=== PATIENT | female | born 1970 | race Caucasian/White ===

== ENCOUNTER → 2016-04-26 | Outpatient (CLI) | payer BC ==
[2016-04-26 13:15] LABS: ALT 33 U/L (9-52); AST 24 U/L (14-36); Alkaline Phosphatase 69 U/L (38-126); Anion Gap 11 mmol/L; Blood Urea Nitrogen 17 mg/dL (7-17); Calcium 9.3 mg/dL (8.4-10.2); Carbon Dioxide 29 mmol/L (22-30); Chloride 101 mmol/L (98-107); Glucose 100 mg/dL (74-99); Non-African American GFR(MDRD) >60 (>60 ml/min/1.73 sqM); Potassium 4.4 mmol/L (3.5-5.1); Sodium 141 mmol/L (137-145); Total Bilirubin 0.7 mg/dL (0.2-1.3); Total Protein 7.6 g/dL (6.3-8.2)
== END | disposition home or self-care (01) ==
LOC: LABWHC1 12:16
PROVIDERS: ATTEND Internal Medicine Endocrinology, Diabetes & Metabolism
DX: E21.0 Primary hyperparathyroidism (principal)
CPT/HCPCS: 36415; 80053; 82306; 83970

== ENCOUNTER → 2016-08-05 | Outpatient (CLI) | payer BC ==
[2016-08-05 14:25] LABS: ALT 38 U/L (9-52); AST 33 U/L (14-36); Alkaline Phosphatase 67 U/L (38-126); Anion Gap 10 mmol/L; Blood Urea Nitrogen 14 mg/dL (7-17); Calcium 9.5 mg/dL (8.4-10.2); Carbon Dioxide 29 mmol/L (22-30); Chloride 103 mmol/L (98-107); Glucose 100 mg/dL (74-99); Non-African American GFR(MDRD) >60 (>60 ml/min/1.73 sqM); Potassium 4.9 mmol/L (3.5-5.1); Sodium 142 mmol/L (137-145); Total Bilirubin 0.7 mg/dL (0.2-1.3); Total Protein 7.7 g/dL (6.3-8.2)
== END | disposition home or self-care (01) ==
LOC: LABWHC1 13:27
PROVIDERS: ATTEND Internal Medicine Endocrinology, Diabetes & Metabolism
DX: E21.0 Primary hyperparathyroidism (principal)
CPT/HCPCS: 36415; 80053; 82306; 83970

== ENCOUNTER → 2016-08-20 | Outpatient (CLI) | payer BC ==
--- NOTE | 2016-08-24 14:14 | MM ---
Reason for exam: additional evaluation requested from prior study. Last mammogram was performed 1 year and 1 month ago. History: Family history of breast cancer in maternal grandmother. Benign cyst aspiration of the left breast, 2016. Physical Findings: Nurse did not find any significant physical abnormalities on exam. MG 3D Diag Mammo W/Cad SHAHRAM Bilateral CC and MLO view(s) were taken. Prior study comparison: February 16, 2016, left breast US breast LT. July 16, 2015, left breast US breast workup limited LT. July 11, 2015, bilateral MG 3d screening mammo w/cad. September 21, 2012, bilateral digital screening mammo w/CAD. The breast tissue is heterogeneously dense. This may lower the sensitivity of mammography. 9mm nodular asymmetry inferior left breast redemonstrated. Possible second small asymmetry centrally in the left breast appears more defined. These results were verbally communicated with the patient and result sheet given to the patient on 08/20/16. ASSESSMENT: Incomplete: need additional imaging evaluation, BI-RAD 0 RECOMMENDATION: Ultrasound of the left breast.
--- NOTE | 2016-08-24 14:17 | USB ---
Reason for exam: additional evaluation requested from abnormal screening. History: Family history of breast cancer in maternal grandmother. Benign cyst aspiration of the left breast, 2016. US Breast LT Left breast ultrasound includes all four quadrants, the retroareolar region and axilla. Finding demonstrates a 0.6 x 0.4 x 0.3cm oval, cystic lesion at 2 o' clock, benign and a 0.8 x 0.5 x 0.4cm mixed lesion at 8 o'clock versus 8 x 6 x 4mm previously on 02/16/16 and 8 x 7 x 3mm on 07/16/15. The patient reports interval biopsy in Dr. Sauceda's office and that there was no residual lesion. Recurrent lesion cannot be excluded. These results were verbally communicated with the patient and result sheet given to the patient on 08/20/16 ASSESSMENT: Suspicious, BI-RAD 4 RECOMMENDATION: Surgical consultation and ultrasound core biopsy of the left breast. (8:00) Called Dr. Huston with mammographic findings and has scheduled an appointment for the patient for 08/30/16 at 3:[address] Hines. PRELIMINARY REPORT CALLED AND FAXED TO DR. HINES ON 08/24/16 AT 300/TP. MTDD
== END | disposition home or self-care (01) ==
LOC: RADMAMWWP 13:50
PROVIDERS: ATTEND Obstetrics & Gynecology
DX: R92.2 Inconclusive mammogram (principal); R92.8 Other abnormal and inconclusive findings on diagnostic imaging of breast; Z80.3 Family history of malignant neoplasm of breast
CPT/HCPCS: 76641; G0204; G0279

== ENCOUNTER → 2016-09-03 | Day surgery (SDC) | payer BC ==
[~2016-09-03] MED LIST: ALPRAZolam 0.25 MG TAB ONE; BACITRACIN OINT 1 EACH PACKET TOPICAL ONE; LIDOCAINE 1% INJ 10MG/ML (20 ML MDV) ONE; LIDOCAINE 1%-EPI 1:100,000 20 ML VIAL ONE
--- NOTE | 2016-09-03 11:08 | USB ---
EXAMINATION TYPE: US biopsy breast VAD LT DATE OF EXAM: 09/03/2016 CLINICAL HISTORY: N63 Breast lump/mass. TECHNIQUE: Ultrasound guided core biopsy of left breast. COMPARISON: Previous ultrasound dated 08/20/2016. FINDINGS: The procedure of ultrasound guided core biopsy was explained to the patient. Benefits, alternatives, and risks were discussed. An informed consent was then obtained. The patient was placed in supine positioning for imaging and for the procedure. The overlying skin was prepped and draped in usual sterile fashion. 1 % Xylocaine with and without epinephrine was used as anesthetic into the skin and subcutaneous tissue up to area of concern in the left breast. Under ultrasound guidance, a 12-gauge vacuum assisted biopsy gun device was used to obtain 5 core samples. Following this, a biopsy clip was left in lesion. The patient tolerated the procedure well without any immediate complication. The patient was kept in the radiology department for short stay after the procedure and then discharged home in stable condition. Pathology is pending. IMPRESSION: SUCCESSFUL, UNCOMPLICATED ULTRASOUND GUIDED CORE BIOPSY OF AREA OF CONCERN IN THE LEFT BREAST, FULL PATHOLOGY RESULTS TO FOLLOW. Pathology Results: Benign BREAST, LEFT SITE A, 8:00, BIOPSY: FIBROCYSTIC CHANGES INCLUDING CYSTS AND FIBROSIS. Recommendation Follow up ultrasound of the left breast in 6 months. RADHA
--- NOTE | 2016-09-06 07:52 | MM ---
Reason for exam: additional evaluation requested from abnormal screening. Last mammogram was performed less than 1 month ago. History: Family history of breast cancer in maternal grandmother. Benign cyst aspiration of the left breast, 2016. MG Diagnostic Mammo LT Wo CAD CC and LM view(s) were taken of the left breast. Prior study comparison: August 20, 2016, bilateral MG 3d diag mammo w/cad SHAHRAM. July 11, 2015, bilateral MG 3d screening mammo w/cad. ASSESSMENT: Post procedure mammogram for marker placement RECOMMENDATION: Ultrasound of the left breast in 6 months. PENDING PATHOLOGY RESULTS.
== END ==
LOC: RADUSWWP 09:00
PROVIDERS: ATTEND Surgery
DX: N60.12 Diffuse cystic mastopathy of left breast (principal); R92.8 Other abnormal and inconclusive findings on diagnostic imaging of breast; Z80.3 Family history of malignant neoplasm of breast
CPT/HCPCS: 88305; 19083; G0206; A4648; J2001

== ENCOUNTER → 2017-02-04 | Outpatient (CLI) | payer BC ==
[2017-02-04 14:00] LABS: ALT 43 U/L (9-52); AST 36 U/L (14-36); Alkaline Phosphatase 64 U/L (38-126); Anion Gap 9 mmol/L; Blood Urea Nitrogen 16 mg/dL (7-17); Calcium 9.6 mg/dL (8.4-10.2); Carbon Dioxide 30 mmol/L (22-30); Chloride 104 mmol/L (98-107); Glucose 96 mg/dL (74-99); Non-African American GFR(MDRD) >60 (>60 ml/min/1.73 sqM); Potassium 4.1 mmol/L (3.5-5.1); Sodium 143 mmol/L (137-145); Total Bilirubin 0.5 mg/dL (0.2-1.3); Total Protein 7.8 g/dL (6.3-8.2)
--- NOTE | 2017-02-04 16:14 | US ---
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 GLAND SIZE: Right Lobe: 5.5 x 3.5 x 1.5 cm Overall Parenchyma: homogenous Left Lobe: 5.1 x 1.6 x 1.1 cm Overall Parenchyma: homogeneous Isthmus Thickness: 0.2 cm NODULES RIGHT: # of nodules measured on right: 1 1. 1.0 X 0.8 x 0.4 cm hypoechoic mixed nodule at the mid pole with well-defined margins. This nodu le is wider than tall and shows no intranodular vascularity. Prior size: 0.9 x 0.7 x 0.3 cm LEFT: # of nodules measured on left: 1 1. 1.0 X 0.8 x 0.5 cm isoechoic mixed nodule at the mid pole with well-defined margins. This nodul e is wider than tall and shows intranodular vascularity. Prior size: 1.0 x 0.8 x 0.4 cm ISTHMUS: # of nodules measured in the isthmus: 0 Bilateral neck scanned, no evidence of lymphadenopathy. IMPRESSION: 1. Bilateral thyroid nodules
== END | disposition home or self-care (01) ==
LOC: RADUSWWP 13:28
PROVIDERS: ATTEND Internal Medicine Endocrinology, Diabetes & Metabolism
DX: E04.2 Nontoxic multinodular goiter (principal); E21.0 Primary hyperparathyroidism
CPT/HCPCS: 36415; 76536; 80053; 82306; 83970; 84443

== ENCOUNTER → 2017-03-11 | Outpatient (CLI) | payer BC ==
--- NOTE | 2017-03-14 08:11 | USB ---
Reason for exam: follow-up at short interval from prior study. History: Family history of breast cancer in maternal grandmother. Benign US biopsy breast VAD LT of the left breast, September 03, 2016. Benign cyst aspiration of the left breast, 2015. Physical Findings: Nurse Summary: bilateral prominent nodularity at 12 o'clock, palpalpable and tender area left breast medial 9 o'clock (nurse ts). US Breast LT Left breast ultrasound includes all four quadrants, the retroareolar region and axilla. Finding demonstrates a 0.6 x 0.4 x 0.4cm oval, cystic lesion at 2 o'clock and a 0.7 x 0.4 x 0.7cm oval, mixed lesion at 8 o'clock prior biopsy site. These results were verbally communicated with the patient and result sheet given to the patient on 03/11/17. ASSESSMENT: Benign, BI-RAD 2 RECOMMENDATION: Routine screening mammogram of both breasts in 6 months. Back on schedule for July 2017.
== END | disposition home or self-care (01) ==
LOC: RADUSWWP 14:14
PROVIDERS: ATTEND Obstetrics & Gynecology
DX: R92.8 Other abnormal and inconclusive findings on diagnostic imaging of breast (principal)

== ENCOUNTER → 2018-05-05 | Outpatient (CLI) | payer BC ==
--- NOTE | 2018-05-09 07:46 | MM ---
Reason for exam: screening (asymptomatic). Last mammogram was performed 1 year and 8 months ago. History: Family history of breast cancer in maternal grandmother. Benign US biopsy breast VAD LT of the left breast, September 03, 2016. Benign cyst aspiration of the left breast, 2015. Physical Findings: A clinical breast exam by your physician is recommended on an annual basis and results should be correlated with mammographic findings. MG 3D Screening Mammo W/Cad Bilateral CC and MLO view(s) were taken. Prior study comparison: September 03, 2016, left breast MG diagnostic mammo LT wo CAD. August 20, 2016, bilateral MG 3d diag mammo w/cad SHAHRAM. July 11, 2015, bilateral MG 3d screening mammo w/cad. Previous mammotome biopsy in the left breast. No significant changes when compared with prior studies. ASSESSMENT: Benign, BI-RAD 2 RECOMMENDATION: Routine screening mammogram of both breasts in 1 year.
== END | disposition home or self-care (01) ==
LOC: RADMAMWWP 12:23
PROVIDERS: ATTEND Obstetrics & Gynecology
DX: Z12.31 Encounter for screening mammogram for malignant neoplasm of breast (principal)
CPT/HCPCS: 77063; 77067

== ENCOUNTER → 2018-10-03 | Outpatient (CLI) | payer BC ==
--- NOTE | 2018-10-03 14:32 | BD ---
EXAMINATION TYPE: Axial Bone Density DATE OF EXAM: 10/03/2018 COMPARISON: NONE CLINICAL HISTORY: 48 YR OLD FEMALE.....ICD-10 CODE: Z13.820 BONE DENSITY SCREENING Height: 66 Weight: 184 FRAX RISK QUESTIONS: Family History (Parent hip fracture): YES Secondary Osteoporosis: YES 2. Hyperthyroidism: YES RISK FACTORS HISTORY OF: Family History of Osteoporosis: YES, GRANDMOTHER WITH HIP FX ON PATERNAL SIDE Active: YES Diet low in dairy products/other sources of calcium: YES Postmenopausal woman: YES NATURAL AT AGE 47 Hyperparathyroidism: YES MEDICATIONS: Additional Medications: BP MEDS, VIT D, HEART MEDS, Additional History: BICUSPID AORTIC VALVE, HYPERCALCEMIA, HYPERTENSION EXAM MEASUREMENTS: Bone mineral densitometry was performed using the [employer] [facility]. Bone mineral density as measured about the Lumbar spine is: ----- L1-L4(G/cm2): 0.859 T Score Values are as follows: ----- L1: -1.7 ----- L2: -2.5 ----- L3: -2.7 ----- L4: -3.6 ----- L1-L4: -2.7 Bone mineral density FIRST DEXA SCAN....BASELINE STUDY Bone mineral density about the R hip (g/cm2): 0.851 Bone mineral density about the L hip (g/cm2): 0.884 T Score values are as follows: -----R Neck: -1.7 -----L Neck: -1.6 -----R Total: -1.2 -----L Total: -1.0 Bone mineral density FIRST DEXA STUDY FRAX%s: THERE IS A 4.6% CHANCE FOR A MAJOR OSTEOPOROTIC FX AND A 0.5% FOR HIP.....PROBABILITY FOR FX IN 10 YRS TIME IMPRESSION: Osteoporosis (T Score less than -2.5) with regards to the lumbar spine. There is increased fracture risk and therapy is usually indicated based on age. Re-Screen 1-2 years. NOTE: T-SCORE=SD OF THE YOUNG ADULT MEAN.
== END ==
LOC: RADBDWWP 12:54
PROVIDERS: ATTEND Obstetrics & Gynecology
DX: M81.0 Age-related osteoporosis without current pathological fracture (principal); N95.1 Menopausal and female climacteric states; E21.3 Hyperparathyroidism, unspecified
CPT/HCPCS: 77080

== ENCOUNTER → 2019-12-21 | Outpatient (CLI) | payer BC ==
--- NOTE | 2019-12-21 12:49 | US ---
EXAMINATION TYPE: US thyroid st tissue head/neck DATE OF EXAM: 12/21/2019 COMPARISON: NONE CLINICAL HISTORY: E21.3 Hyperparathyroidism. GLAND SIZE: Right Lobe: 5.9 x 1.2 x 1.8 cm Overall Parenchyma: homogenous Left Lobe: 5.2 x 1.0 x 1.6 cm Overall Parenchyma: homogeneous Isthmus Thickness: 0.2 cm NODULES RIGHT: # of nodules measured on right: 1 1. 1.0 X 0.4 x 0.9 cm anechoic cystic nodule at the upper pole with well-defined margins. This nod ule is wider than tall and shows no intranodular vascularity. Prior size: 0.9 X 0.8 x 0.4cm LEFT: # of nodules measured on right: 1 1. 1.2 X 0.5 x 1.2 cm isoechoic solid nodule at the mid pole with well-defined margins. This nodul e is wider than tall and shows intranodular vascularity. Prior size:1.0 X 0.8 x 0.4cm ISTHMUS: # of nodules measured in the isthmus: 0 Bilateral neck scanned, no evidence of lymphadenopathy. IMPRESSION: Bilateral thyroid nodules. Left lobe thyroid nodules slightly enlarged over the interval.
== END | disposition home or self-care (01) ==
LOC: RADUSWWP 12:04
PROVIDERS: ATTEND Family Medicine
DX: E04.1 Nontoxic single thyroid nodule (principal); E21.3 Hyperparathyroidism, unspecified
CPT/HCPCS: 76536

== ENCOUNTER 2020-01-18 09:30 | Day surgery (SDC) | payer BC ==
[2020-01-16 15:40] VITALS: BMI 46.0
[~2020-01-18 09:30] MED LIST changes: -ALPRAZolam 0.25 MG TAB ONE; -BACITRACIN OINT 1 EACH PACKET TOPICAL ONE; +LACTATED RINGERS 1,000 ML IV SCH; +LIDOCAINE 1% (10MG/ML) FOR IV START INTRADERMA PRN; -LIDOCAINE 1% INJ 10MG/ML (20 ML MDV) ONE; -LIDOCAINE 1%-EPI 1:100,000 20 ML VIAL ONE
[2020-01-18 10:06] VITALS: RESP 16; TEMP 98.2
[2020-01-18] MEDS ORDERED: LIDOCAINE 1% INJ 10MG/ML (20 ML MDV) ONE (11:16)
[2020-01-18] MEDS ORDERED: PROPOFOL 10 MG/ML 20 ML VIAL IV ONE (11:16)
--- NOTE | 2020-01-18 11:45 | P.PCN ---
Date of Procedure: 01/18/20 Procedure(s) Performed: BRIEF HISTORY: Patient is a 49-year-old pleasant female scheduled for an elective colonoscopy as a part of screening for colorectal neoplasia. Her father and grandfather both were diagnosed with colon cancer in his 60s. PROCEDURE PERFORMED: Colonoscopy with biopsy. PREOPERATIVE DIAGNOSIS: Screening for colon cancer/family history of colon cancer. IV sedation per Anesthesia. PROCEDURE: After informed consent was obtained, the patient, was brought into the endoscopy unit. IV sedation was administered by Anesthesia under continuous monitoring. Digital rectal examination was normal. Initially the Olympus CF-160 flexible video colonoscope was then inserted in the rectum, gradually advanced into the cecum without any difficulty. Careful examination was performed as the scope was gradually being withdrawn. Ileocecal valve and the appendiceal orifice were visualized and appeared normal. Prep was excellent. Mucosa of the cecum appeared normal. in the ascending colon there was a 3-4 mm polyp that was removed by cold biopsy. Rest of the, ascending colon, transverse colon, descending colon, sigmoid colon, and rectum appeared normal. Retroflexion was performed in the rectum and no lesions were seen. Scattered sigmoidal diverticulosis. The patient tolerated the procedure well. IMPRESSION: 3-4 cm sessile ascending colon polyp status post removal by cold biopsy Scattered sigmoid diverticulosis. RECOMMENDATIONS: Findings of this examination were discussed with the patient as well as her family. She was advised to follow with the biopsy results and have a repeat colonoscopy in 5 years..
[2020-01-18 12:01] VITALS: BP 121/79; PULSE 78
== END 2020-01-18 12:24 | disposition home or self-care (01) ==
LOC: ORWHC2ENDO 09:30
PROVIDERS: ATTEND Internal Medicine Gastroenterology
DX: Z12.11 Encounter for screening for malignant neoplasm of colon (principal); D12.2 Benign neoplasm of ascending colon; K57.30 Diverticulosis of large intestine without perforation or abscess without bleeding; I10 Essential (primary) hypertension; Q23.1 Congenital insufficiency of aortic valve; Z80.0 Family history of malignant neoplasm of digestive organs; Z79.82 Long term (current) use of aspirin; Z79.899 Other long term (current) drug therapy; Z79.83 Long term (current) use of bisphosphonates
CPT/HCPCS: 88305; 45380; J2001; J2704

== ENCOUNTER → 2020-02-13 | Outpatient (CLI) | payer BC ==
--- NOTE | 2020-02-14 09:30 | MM ---
Reason for exam: screening (asymptomatic). Last mammogram was performed 1 year and 9 months ago. History: Family history of breast cancer in maternal grandmother. Benign US biopsy breast VAD LT of the left breast, September 03, 2016. Benign cyst aspiration of the left breast, 2016. Physical Findings: A clinical breast exam by your physician is recommended on an annual basis and results should be correlated with mammographic findings. MG 3D Screening Mammo W/Cad Bilateral CC and MLO view(s) were taken. Prior study comparison: May 05, 2018, bilateral MG 3d screening mammo w/cad. September 03, 2016, left breast MG diagnostic mammo LT wo CAD. The breast tissue is heterogeneously dense. This may lower the sensitivity of mammography. No significant changes when compared with prior studies. ASSESSMENT: Benign, BI-RAD 2 RECOMMENDATION: Routine screening mammogram of both breasts in 1 year.
== END | disposition home or self-care (01) ==
LOC: RADMAMWWP 14:48
PROVIDERS: ATTEND Family Medicine
DX: Z12.31 Encounter for screening mammogram for malignant neoplasm of breast (principal)
CPT/HCPCS: 77063; 77067

== ENCOUNTER 2020-02-18 12:42 | Day surgery (SDC) | payer BC ==
[2020-02-18 13:05] VITALS: BP 137/76; PULSE 98; RESP 16; TEMP 98.9
--- NOTE | 2020-02-18 18:04 | US ---
EXAMINATION TYPE: US FNA first lesion DATE OF EXAM: 02/18/2020 COMPARISON: Thyroid ultrasound 12/21/2027, 02/04/2017 HISTORY: Thyroid nodule, E04.1 RHINESTONE SETTER: Dr. Bess Robbins PROCEDURE: Preprocedure preliminary ultrasound imaging demonstrates a 1.4 x 0.7 x 1.0 cm mixed solid cystic, hyp oechoic, wider than tall, smoothly marginated left thyroid nodule with no echogenic foci. The procedure was discussed with the patient. The risks, complications, benefits, and alternatives we re discussed and any questions were answered. Informed consent was obtained. The patient was placed s upine on the ultrasound table and prepped and draped in the usual sterile fashion. Maximal barrier technique was utilized. Ultrasound using sterile technique. The skin overlying the no dule was localized with ultrasound and the overlying skin prepped and draped. Lidocaine used for loca l anesthesia. 5 passes with a 25-gauge needle were made into the nodule under ultrasound guidance. As pirate specimen submitted to cytology. Postprocedure imaging demonstrates no significant hemorrhage. Following the procedure hemostasis achieved. No immediate complication. IMPRESSION: Status post ultrasound-guided fine-needle aspiration of left thyroid nodule, pathology pe nding.
== END 2020-02-27 10:14 | disposition home or self-care (01) ==
LOC: RADPROMAIN 12:42
PROVIDERS: ATTEND Family Medicine
DX: E04.1 Nontoxic single thyroid nodule (principal)
CPT/HCPCS: 10005; 88173; 88305

== ENCOUNTER → 2021-06-19 | Outpatient (CLI) | payer BC ==
--- NOTE | 2021-06-23 09:53 | MM ---
Reason for exam: screening (asymptomatic). Last mammogram was performed 1 year and 4 months ago. History: Patient is postmenopausal. Family history of breast cancer in maternal grandmother. Benign US biopsy breast VAD LT of the left breast, September 03, 2016. Benign cyst aspiration of the left breast, 2016. Physical Findings: A clinical breast exam by your physician is recommended on an annual basis and results should be correlated with mammographic findings. MG 3D Screening Mammo W/Cad Bilateral CC and MLO view(s) were taken. Prior study comparison: February 13, 2020, bilateral MG 3d screening mammo w/cad. May 05, 2018, bilateral MG 3d screening mammo w/cad. August 20, 2016, bilateral MG 3d diag mammo w/cad HSAHRAM. There is chronic nodularity in the left breast with microclip from prior biopsy. No significant changes when compared with prior studies. ASSESSMENT: Benign, BI-RAD 2 RECOMMENDATION: Routine screening mammogram of both breasts in 1 year. Patient should continue monthly self breast exams. A negative report should not preclude additional follow up of suspicious palpable abnormalities.
== END | disposition home or self-care (01) ==
LOC: RADMAMWWP 13:11
PROVIDERS: ATTEND Obstetrics & Gynecology
DX: Z12.31 Encounter for screening mammogram for malignant neoplasm of breast (principal); Z78.0 Asymptomatic menopausal state; Z80.3 Family history of malignant neoplasm of breast
CPT/HCPCS: 77063; 77067

== ENCOUNTER → 2022-04-02 | Outpatient (CLI) | payer BC ==
--- NOTE | 2022-04-02 14:44 | CT ---
EXAMINATION TYPE: CT angio chest DATE OF EXAM: 04/02/2022 COMPARISON: None HISTORY: Congenital defect of aortic valve. CT DLP: 737.1 mGycm, Automated exposure control for dose reduction was used. CONTRAST: Performed injected with 100ml mL of Isovue 370. TECHNIQUE: Axial images were obtained at 5 mm thick sections. Reconstructed images are reviewed on [employer] computer in the coronal plane. FINDINGS: Portion of the thyroid visualized is normal. No suspicious lung nodules or focal infiltrates are present. Appears to be some bilateral apical scar ring present. No enlarged mediastinal or hilar adenopathy is evident. The ascending aorta diameter at the level o f the main pulmonary artery is 4.0 cm. The main pulmonary artery diameter at the bifurcation is 2.4 cm. Coronary artery calcification is present. Following contrast administration no suspicious enhancement or vascular anomaly is identified. Limited CT sections are obtained through the upper abdomen. There is mild fatty infiltration of the l iver IMPRESSIONS: 1. Ascending thoracic aortic aneurysm 4.0 cm
== END | disposition home or self-care (01) ==
LOC: RADCTMAIN 13:03
PROVIDERS: ATTEND Internal Medicine Interventional Cardiology
DX: I71.20 Thoracic aortic aneurysm, without rupture, unspecified (principal); Q23.1 Congenital insufficiency of aortic valve
CPT/HCPCS: 71275; Q9967

== ENCOUNTER → 2022-09-27 | Outpatient (CLI) | payer BC ==
--- NOTE | 2022-09-29 08:00 | MM ---
Reason for Exam: Screening (asymptomatic). Last mammogram was performed 1 year(s) and 4 month(s) ago. Patient History: Menarche at age 11. First Full-Term at age 27. Postmenopausal. 2016, Benign Cyst Aspiration on the left side. 09/03/2016, Benign Core Biopsy on the left side. Maternal grandmother had breast cancer. Risk Values: Diana 5 year model risk: 1.4%. NCI Lifetime model risk: 11.0%. Prior Study Comparison: 05/05/2018 Bilateral Screening Mammogram, [facility]. 02/13/2020 Bilateral Screening Mammogram, [facility]. 06/19/2021 Bilateral Screening Mammogram, [facility]. Tissue Density: The breast tissue is heterogeneously dense. This may lower the sensitivity of mammography. Findings: Analyzed By CAD. There is no suspicious group of microcalcifications or new suspicious mass in either breast. Overall Assessment: Benign, BI-RAD 2 Management: Screening Mammogram of both breasts in 1 year. . Patient should continue monthly self-breast exams. A clinical breast exam by your physician is recommended on an annual basis. This exam should not preclude additional follow-up of suspicious palpable abnormalities. Note on Diana scores and lifetime risk: 1. A Diana score greater than 3% is considered moderate risk. If this is the case, consider specialist referral to assess eligibility for a risk reducing agent. 2. If overall lifetime risk for the development of breast cancer is 20% or higher, the patient may qualify for future screening with alternating mammogram and breast MRI. Electronically signed and approved by: Mihir Saul M.D. Radiologis
== END | disposition home or self-care (01) ==
LOC: RADMAMWWP 14:40
PROVIDERS: ATTEND Family Medicine
DX: Z12.31 Encounter for screening mammogram for malignant neoplasm of breast (principal); Z78.0 Asymptomatic menopausal state; Z80.3 Family history of malignant neoplasm of breast
CPT/HCPCS: 77063; 77067

== ENCOUNTER 2022-12-21 08:01 | Observation (INO) | payer BC ==
[~2022-12-21 08:01] MED LIST changes: +ACETAMINOPHEN TAB 500 MG TAB PO PRN; +GABAPENTIN 300 MG CAP PO PRN; -LACTATED RINGERS 1,000 ML IV SCH; -LIDOCAINE 1% (10MG/ML) FOR IV START INTRADERMA PRN; +MELOXICAM 7.5 MG TAB PO PRN; +TRANEXAMIC 1,000 MG/100ML-NACL 1,000 MG in SALINE 1 100ML.BAG IVPB PRN
[2022-12-21] MEDS ORDERED: NALOXONE 0.4 MG/ML 1 ML VIAL IV PRN (08:04)
[2022-12-21] MEDS ORDERED: NA PHOS,M-B/NA PHOS,DI-BA 133 ML ENEMA RECTAL PRN (08:04)
[2022-12-21] MEDS ORDERED: MAGNESIUM HYDROXIDE 2,400 MG/30 ML CUP PO PRN (08:04)
[2022-12-21] MEDS ORDERED: bisacodyL 10 MG SUPP RECTAL PRN (08:04)
[2022-12-21] MEDS ORDERED: HYDROmorphone 1 MG/ML 1 ML SYRINGE IVP PRN (08:04)
[2022-12-21] MEDS ORDERED: HYDROmorphone 0.5 MG/0.5 ML SYRINGE IVP PRN (08:04)
[2022-12-21] MEDS ORDERED: LACTATED RINGERS 1,000 ML IV ONE ×2 (08:51→11:27)
[2022-12-21] MEDS ORDERED: DEXAMETHASONE SOD PHOSPHATE 4 MG/ML 1 ML VIAL IVP ONE (08:53)
[2022-12-21] MEDS: ONDANSETRON 4 MG/2 ML VIAL IVP PRN (08:53)
[2022-12-21] MEDS ORDERED: MIDAZOLAM 2 MG/2 ML VIAL IVP ONE (09:06)
[2022-12-21] MEDS ORDERED: fentaNYL (PF) 50 MCG/ML 2 ML AMP IVP ONE (09:12)
[2022-12-21] MEDS ORDERED: ROPIVACAINE 5 MG/ML 30 ML VIAL ONE (10:16)
[2022-12-21] MEDS ORDERED: MIDAZOLAM 2 MG/2 ML VIAL ONE (10:16)
[2022-12-21] MEDS ORDERED: PHENYLEPHRINE-0.9% NACL SYG 1,000 MCG/10 ML SYRINGE ONE (10:16)
[2022-12-21] MEDS ORDERED: SODIUM CHLORIDE 0.9% (PF) 10 ML VIAL ONE (10:16)
[2022-12-21] MEDS ORDERED: TRANEXAMIC 1,000 MG/100ML-NACL PREMIX BAG ONE (10:16)
[2022-12-21] MEDS ORDERED: PROPOFOL 10 MG/ML 20 ML VIAL IV ONE (10:16)
[2022-12-21] MEDS ORDERED: fentaNYL (PF) 50 MCG/ML 2 ML AMP ONE (10:16)
[2022-12-21] MEDS ORDERED: ceFAZolin 1,000 MG in SODIUM CHLORIDE 0.9% 1,000 ML IRRIGATION ONE (10:50)
--- NOTE | 2022-12-21 11:22 | P.ANPRN ---
Procedure Note - Anesthesia - Nerve Block Performed Right Adductor Canal Infusion Time Out Performed: Yes ([id number]) Date of Procedure: 12/21/22 Location of Patient: PreOp Indication: Acute Post-Operative Pain, Dx/Pain Location (Right knee), Requested by Surgeon Specifically requested for management of pain by : Andrei Mills Sedation Type: Sedate with meaningful contact maintained Preparation: Sterile Prep, Sterile Dressing Position: Supine Catheter: Indwelling Needle Types: Pajunk Needle Gauge: 18 Ultrasound used to visualize needle placement: Yes Ultrasound used to observe medication spread: Yes Injectate: 0.5% Ropivacaine (see comment for volume) (20 mL +10 mL of normal saline) Blood Aspirated: No Pain Paresthesia on Injection Noted: No Resistance on Injection: Normal Image Stored and Saved: Yes Events: Uneventful and Well Tolerated Right iPack Single Time Out Performed: Yes Date of Procedure: 12/21/22 Location of Patient: PreOp Indication: Acute Post-Operative Pain, Dx/Pain Location (Right knee), Requested by Surgeon Specifically requested for management of pain by DrConcha: Andrei Mills Sedation Type: Sedate with meaningful contact maintained Preparation: Sterile Prep Position: Left Lateral Catheter: None Needle Types: Pajunk Needle Gauge: 21 Ultrasound used to visualize needle placement: Yes Ultrasound used to observe medication spread: Yes Injectate: 0.5% Ropivacaine (see comment for volume) (20 mL +10 mL of normal) Blood Aspirated: No Pain Paresthesia on Injection Noted: No Resistance on Injection: Normal Image Stored and Saved: Yes Events: Uneventful and Well Tolerated
--- NOTE | 2022-12-21 11:32 | P.OP ---
Date of Procedure: 12/21/22 Preoperative Diagnosis: Severe osteoarthritis right knee Postoperative Diagnosis: Severe osteoarthritis right knee Procedure(s) Performed: Right total knee arthroplasty Implants: Zepeda [employer] Nephew Journey II CR Oxinium cruciate retaining femoral component size 5, right [employer]epeda [employer]hew Journey nonporous tibial baseplate size 3, right [employer]epeda [employer]hew Journey II, XLPE Deep Dished articular insert, size 15 mm, Size 3-4, right [employer]ep[employer]hew Journey Aurora II resurfacing patellar component, oval, 29 mm All components were cemented using Palacos R bone cement The articulation is Oxinium on polyethylene Anesthesia: spinal Surgeon: Andrei Mills Senior Design Engineer #1: Karin Goetz Estimated Blood Loss (ml): 40 Pathology: none sent Condition: stable Disposition: PACU Indications for Procedure: The patient's knee is end-stage, and conservative management has failed. The operation of knee replacement has been discussed at length in the office, as well as potential risks and complications. These are inclusive of, but not limited to: Infection, bleeding, scarring, discomfort, stiffness, blood vessel and nerve damage, need for further surgery, failure to relieve symptoms, persistence, recurrence, or worsening of problems, loosening, dislocation, wear, blood clot, pulmonary embolism, , gait dysfunction, stiffness, and other risks as discussed in the office. Patient elects to proceed and the consent form has been signed. Operative Findings: The operative findings are consistent with severe osteoarthritis of the right knee Description of Procedure: The patient was seen in the preoperative area, the consent was reviewed and the operative site was marked with a skin marker. The patient verified the procedure and the operative site. An adductor canal pain catheter and an iPACK block were placed by anesthesia in the preoperative area. The patient was then brought to the operating room and positioned on the operating room table in the supine position. Preoperative antibiotics and a gram of tranexamic acid were given intravenously. A spinal anesthetic was administered by the anesthesia department. Care was taken to make sure that all pressure points were adequately padded. A tourniquet was placed on the upper thigh and the lower extremity was prepped with ChloraPrep and draped in usual sterile fashion. A universal time-out was then performed which confirmed the patient's name, surgical site, ALLERGIES, and consent. The lower extremity was then exsanguinated and tourniquet was inflated to 250 mmHg. A standard anterior midline approach to the knee was performed. The skin and subcutaneous tissue were sharply dissected down to the patellar tendon. A medial parapatellar arthrotomy was then performed. The knee was then extended, the patellar was everted, and the knee was flexed. The infra-patellar fat pad was removed in order to enhance exposure. The anterior horns of both menisci were excised, and a release was performed to the posterior medial aspect of the knee. On gross visual inspection, there was complete loss of articular cartilage in the medial and patellofemoral joint spaces. There was also significant cartilage damage in the lateral compartment. There were multiple periarticular osteophytes globally about the knee which were then removed with a Ronguer. The femoral canal was then opened with the 9.5 mm intramedullary drill. The 8 mm intramedullary alva was then inserted into the femoral canal with the distal femoral cutting guide set for 5 of valgus. The distal femoral cutting block was then pinned in place. The intramedullary alva was then removed, and the distal femur was then cut. The cutting block was then removed and the cut was checked for symmetry. The resected bone was then measured to confirm the appropriate distal femoral resection. Next, the sizing guide was then placed and set for 3 external rotation based off of the epicondylar axis and Coosa's line. Pins were then placed and the drill holes, and the femur was sized with the sizing stylus. The pins were then removed, and the sizing guide was then removed. The spikes of the appropriate size femoral block was then placed into the predrilled holes, and malleted into place. Two 45 mm pins were then placed into the fixation holes on the cutting block. An justyna wing was then used to ensure there would be no notching with the anterior cut. The anterior condyles were cut without notching. The anterior chord cut was then performed, followed by the posterior cut, posterior chamfer cut, and the anterior chamfer cut. The collateral ligaments were protected during the entire process. The cutting block was then removed. Any remaining bone and osteophytes were removed from the femur with a Ronguer. Attention was then directed to the tibia. The remaining ACL was removed with a Ronguer, and the tibia was then gently subluxed forward with a large bent knee retractor. Any remaining menisci were excised. The posterior lateral corner was cauterized in order to coagulate the lateral geniculate artery. The extra medullary tibial cutting guide was then placed, set for the appropriate rotation, slope, and depth of resection. The proximal tibia cutting guide was then pinned in place. Proximal tibia was then cut and sized. A curved osteotome was then used to remove any posterior osteophytes from the distal femur. The femoral trial was placed. A narrow saw blade was then used to remove the anterior intracondylar femoral bone. The CR notch trial was then placed. The tibial trial was placed with the appropriate-sized insert. The knee was able to fully extend and flex to 130 and was stable throughout all range of motion. The knee was then extended and the patella was everted. Patella was then measured, and then using an osteotomy guide, the patella was cut at the appropriate level. The patellar component was sized. The patellar drill guide was placed and the patella was drilled. The patella trial was then placed. The knee was then taken through range of motion with the patella trial and the patella tracked normally using the no thumbs technique. The patella trial was then removed. The knee was then flexed and lug holes were drilled through the femoral trial and the femoral trial was then removed. The tibial was then re- exposed, and the tibial broach guide was then pinned in place after it was set for the appropriate rotation to allow for the most coverage without overhang. The tibia was then reamed and broached. The femoral canal was plugged with autologous bone. The cut surfaces of bone were then irrigated with pulsatile lavage. The knee was also irrigated with Irrisept solution. The components were then opened, the cement was mixed. Cement was placed on the backside of the femoral, tibial, and patellar components. Cement was then applied to the tibial surface and pressurized into the surface using finger pressurization technique. The tibial component was then applied and excess cement was removed after it was impacted securely noted to be flush with the cut surface. In similar fashion, the cement was applied to the cut femoral surface, pressurized and using finger pressurization the component was impacted in place. Excess cement was removed. The polyethylene spacer was then implanted and locked into position. Patellar component was then applied in a similar technique and the patellar clamp was used to hold patella in place while the cement hardened. The knee was held in full extension while the cement hardened. Once the cement had fully hardened, the knee was reinspected. Any other cement extrusion was removed the final range of motion testing showed range of motion from 0-130 with excellent stability, both medial and laterally and appropriate alignment of the leg. Patella tracked normally. After the cemented hardened, the tourniquet was released and hemostasis was obtained. A second gram of transexamic acid was given intravenously. The knee was again irrigated. The knee was again taken through range of motion and found to be stable throughout all range of motion of 0-130, and the patella tracked normally. The fascia was then closed with 0 Vicryl followed by #2 strata fix suture. The subcutaneous tissue was closed with 3-0 Vicryl and 3-0 strata fix. Exofin glue was used for the skin and placed with the knee in flexion. After the glue had dried, and Optafoam silver impregnated dressing was applied. A lightly compressive dressing was applied using web roll and Chris wrap. Patient was then transferred to the stretcher and taken to recovery room in stable condition. Sponge and needle counts were correct. The dental ceramist assistant SEB Raygoza was required due the complexity surgery and the need for a skilled assistant professor surgical technology. She assisted in positioning, draping, retraction, and closure of the wound.
[2022-12-21] MEDS ORDERED: ROPIVACAINE 1,100 MG, SODIUM CHLORIDE 0.9% 500 ML 330 ML, EMPTY PAIN BALL 1 EACH MISCELLANE PRN ×2 (12:22)
--- NOTE | 2022-12-21 12:33 | XR ---
EXAMINATION TYPE: XR knee limited RT DATE OF EXAM: 12/21/2022 CLINICAL HISTORY: Postoperative evaluation Two views of the right knee are submitted. Identified are changes of total knee arthroplasty with femoral and tibial components appearing well seated. Postsurgical soft tissue changes are noted. Alignment is anatomic.
[2022-12-21] MEDS: SODIUM CHLORIDE 0.9% 1,000 ML IV SCH ×2 (15:51→23:55)
--- NOTE | 2022-12-21 17:49 | P.CONS ---
History of Present Illness - Reason for Consult Consult date: 12/21/22 Medical management - History of Present Illness History of Presenting Illness: Patient is a very pleasant 52-year-old female with a past medical history of hypertension, hypothyroidism, GERD, and osteoporosis. She is currently admitted under orthopedic surgery team status post elective right total knee arthroplasty. Surgery was completed by Dr. Mills. We have been consulted for medical management throughout patient's hospitalization. Patient seen and fully evaluated at bedside. She appeared to be resting comfortably with at bedside. Patient reports currently postoperative pain is completely controlled. She does report feeling that she needs to move her right leg because it occasionally stiffens up but otherwise denies having any complaints of postoperative pain management. Patient does report experiencing urinary frequency and postoperative time frame but denies having a ny dysuria or hematuria. Patient also denies having any dizziness, lightheadedness, chest pain, palpitations, or experiencing any focal numbness or weakness in her extremities. Review of systems: Pertinent positives and negatives as discussed in HPI, a complete review of systems was performed and all other systems are negative. Physical exam: Vital signs reviewed and stable. General: Nontoxic, no distress and appears stated age. Derm: Skin warm and dry, normal coloration for ethnicity. Head: Atraumatic, normocephalic and symmetric. Eyes: EOMs intact, no lid lag, and anicteric sclera Mouth: no lip lesions, mucus membranes moist Cardiovascular: regular rate and rhythm with normal S1S2, systolic murmur, positive posterior tibial pulses bilaterally, and cap refill < 2 seconds. Lungs: Respirations even, regular, and unlabored on room air. Lungs CTA bilaterally, no rhonchi, no rales, no wheezing, and no accessory muscle usage. Abdominal: soft, nontender to palpation, no guarding, no appreciable organomegaly Ext: No gross muscle atrophy, no edema, no contractures movement and sensation intact. Dressing clean dry and intact right lower extremity. Neuro: Speech clear, face symmetrical and CN II-XII grossly intact with no noted focal neuro deficits Psych: Alert and oriented to person, place, time, and situation. Appropriate and pleasant affect. Assessment and Plan of Care: Status post right total knee arthroplasty Management per primary admitting orthopedic surgery team including DVT prophylaxis, pain management, weightbearing, wound/dressing care, and PT/OT. Hypertension Monitor vital signs and continue daily medication regimen with losartan 25 mg daily and metoprolol 25 mg daily. GERD PPI with Protonix 40 mg daily. Thank you for allowing us to participate in the care of this pleasant patient. Do not hesitate to contact us with questions. Someone can be reached from the [facility] hospitalist group all hours of the day at [phone] or via Pretty Padded Room. Patient was seen independently by Nurse Practitioner. This document was prepared using [employer] dictation software. Please allow for errors in deli/bakery associate while rare they do occur. Andrew Cruz NP rendered care for this patient independently, reviewed the findings and plan as documented in the note above. I did not physically speak with or examine the patient on this date. Past Medical History Past Medical History: GERD/Reflux, Hypertension, Osteoarthritis (OA), Thyroid Disorder Additional Past Medical History / Comment(s): BISCUSPID AORTIC VALVE, OSTEOPOROSIS, vitamin D deficiency, kidney stones passes on own, hyperparathyroidism, colon polyp, past plantar fascitis History of Any Multi-Drug Resistant Organisms: None Reported Past Surgical History: Breast Surgery, Section Additional Past Surgical History / Comment(s): colonscopy, D&C, L breast biopsy Past Anesthesia/Blood Transfusion Reactions: No Reported Reaction, Motion Sickness Smoking Status: Never smoker - Past Family History Father Family Medical History: Cancer Medications and Allergies Home Medications Medication Instructions Recorded Confirmed Type Losartan [Cozaar] 25 mg PO 1200 01/16/20 12/15/22 History Metoprolol Tartrate [Lopressor] 25 mg PO 1200 01/16/20 12/15/22 History Cholecalciferol (Vitamin D3) 75 mg PO 1200 12/15/22 12/15/22 History [Vitamin D3 (3000 Iu)] Aspirin 325 mg PO BID #60 tab 12/21/22 Rx HYDROcodone/APAP 7.5-325MG [[place] 1 - 2 tab PO Q6H PRN #32 tab 12/21/22 Rx 7.5-325] Sennosides [Senokot] 2 tab PO DAILY PRN #60 tablet 12/21/22 Rx Metoclopramide [Reglan] 10 mg PO QID PRN #28 tab 12/23/22 Rx Pantoprazole Sodium [Protonix] 20 mg PO DAILY #30 tab 12/23/22 Rx Allergies Allergy/AdvReac Type Severity Reaction Status Date / Time No Known Allergies Allergy Verified 12/15/22 14:40 Physical Exam Vitals: Vital Signs Temp Pulse Pulse Resp BP BP Pulse Ox 12/21/22 15:13 83 16 115/78 97 12/21/22 14:30 80 16 116/59 96 12/21/22 14:00 76 16 109/57 96 12/21/22 13:45 64 16 114/57 94 L 12/21/22 13:30 58 L 16 116/59 100 12/21/22 13:15 59 L 16 116/57 100 12/21/22 13:00 75 16 112/58 100 12/21/22 12:45 57 L 16 117/57 100 12/21/22 12:30 70 16 115/61 100 12/21/22 12:15 67 16 106/58 100 12/21/22 11:58 96.8 F L 74 14 108/56 100 12/21/22 09:23 68 16 115/60 99 12/21/22 08:51 98 F 66 18 137/75 97 Intake and Output 12/21/22 12/21/22 12/21/22 06:59 14:59 22:59 Intake Total 1401 Output Total 40 Balance 1361 Intake: IV 1401 Output: Estimated Blood Loss 40 Other: Weight 92.9 kg 92.9 kg Results CBC & Chem 7: 12/22/22 06:44
[2022-12-21] MEDS: ASPIRIN 325 MG TAB PO SCH (21:16)
[2022-12-21] MEDS: SENNOSIDES-DOCUSATE SODIUM 1 EACH TAB PO SCH (21:16)
[2022-12-21] MEDS: HYDROcodone/APAP 7.5-325MG 1 EACH TAB PO PRN (21:22)
[2022-12-22] MEDS: HYDROmorphone 0.5 MG/0.5 ML SYRINGE IVP PRN ×3 (04:03→21:41)
[2022-12-22] MEDS: HYDROcodone/APAP 7.5-325MG 1 EACH TAB PO PRN ×3 (06:59→17:35)
[2022-12-22] MEDS: ASPIRIN 325 MG TAB PO SCH ×2 (07:55→21:40)
[2022-12-22] MEDS: PANTOPRAZOLE 40 MG/10 ML VIAL IVP SCH (07:55)
[2022-12-22] MEDS: ONDANSETRON 4 MG/2 ML VIAL IVP PRN (09:15)
--- NOTE | 2022-12-22 09:57 | P.PN ---
Progress Note - Text Progress Note Date: 12/22/22 Postoperative day # 1 status post total knee arthroplasty, on adductor canal perineural catheter placed for postoperative analgesia. Ropivacaine 0.2% 8 mL per hour through ON-Q pump continuous infusion. Pain is well controlled. On visual analog scale 6/10 Patient is taking PRN oral pain medications. Catheter site: Looks Ok. There is no erythema or tenderness. Continue with the current pain management plan and will follow.
--- NOTE | 2022-12-22 11:28 | P.PN ---
Subjective Progress Note Date: 12/22/22 This patient is a 52-year-old female who is status-post right total knee arthroplasty 12/21/[address] Mills. Patient is examined bedside this morning. She states she is having severe pain in the knee this morning, patient was recently given a dose of IV diluadid per nursing. Patient has been able to ambulate to the bathroom with a walker. She refused physical therapy this morning due to nausea. Patient also states she is feeling anxious this morning. She is tolerating her breakfast well at this time. No additional complaints. Vital signs stable. Objective - Vital Signs Vital signs: Vital Signs Temp 98.6 F 12/22/22 07:46 Pulse 83 12/22/22 07:46 Resp 18 12/22/22 07:46 BP 111/75 12/22/22 07:46 Pulse Ox 95 12/22/22 07:46 FiO2 Intake & Output 12/21/22 12/22/22 12/22/22 18:59 06:59 18:59 Intake Total 1401 Output Total 40 Balance 1361 Weight 92.9 kg Intake: IV 1401 Output: Estimated Blood Loss 40 Other: Voiding Method Toilet # Voids 1 2 - Exam On examination, the patient is sitting up in bed in no acute distress. She is alert and orientated x3. On inspection of the right knee, there is a clean, dry, intact surgical dressing in place with no bleeding or drainage through the dressing. Mild swelling. Motor and sensory function is intact of the right lower extremity. Right lower extremity is warm and well perfused. Calf is soft and non-tender. Assessment and Plan Assessment: Status-post right total knee arthroplasty 12/21/[address] Mills. Post-op day #1. Plan: - Patient may weight bear to tolerance on operative extremity with a walker. - Keep operative dressing in place. Do not remove. Patient may shower over dressing. - Physical therapy for gait and balance training. - Pain management as needed. - Aspirin 325mg BID for DVT prophylaxis. - 2 doses of post-operative IV antibiotics complete. - Internal medicine for sundeep-op medical management. - Anticipate discharge home tomorrow.
[2022-12-22 11:44] LABS: Basophils # (A) 0.01 X 10*3/uL (0.00-0.10); Basophils % (A) 0.2 %; Eosinophils # (A) 0.02 X 10*3/uL (0.04-0.35); Eosinophils % (A) 0.3 %; HCT 34.9 % (37.2-46.3); HGB 11.7 d/dL (12.0-15.0); Lymphocytes # (A) 1.23 X 10*3/uL (0.90-5.00); Lymphocytes % (A) 20.2 %; MCH 31.3 pg (27.0-32.0); MCHC 33.5 d/dL (32.0-37.0); MCV 93.3 FL (80.0-97.0); Mean Platelet Volume 10.7 FL (9.5-12.2); Monocytes # (A) 0.67 X 10*3/uL (0.20-1.00); NRBC Per 100 WBC 0 X 10*3/uL (0.00-0.01); Neutrophils # (A) 4.15 X 10*3/uL (1.80-7.70); Platelet Count 140 X 10*3/uL (140-440); RBC 3.74 X 10*6/uL (4.10-5.20); RDW 13.8 % (11.5-14.5)
[2022-12-22] MEDS: METOPROLOL TARTRATE 25 MG TAB PO SCH (12:45)
[2022-12-22] MEDS: LOSARTAN 25 MG TAB PO SCH (12:45)
--- NOTE | 2022-12-22 13:54 | P.PN ---
Subjective Progress Note Date: 12/22/22 No new complaints. Ongoing knee pain. Pending PT evaluation. Gen: awake, alert HEENT: normocephalic, atraumatic, good hearing acuity, moist mucous membranes Resp: good air exchange, breathing comfortably with no accessory muscle use CVS: good distal perfusion x 4, GI: soft, NTTP, ND : no SPT, no CVAT, blackwell catheter not present MSK: no pitting edema, no clubbing Neuro: non-focal, moving all extremities Psych: cooperative, euthymic mood Hospital Course: Patient is a very pleasant 52-year-old female with a past medical history of hypertension, hypothyroidism, GERD, and osteoporosis. She is currently admitted under orthopedic surgery team status post elective right total knee arthroplasty. Surgery was completed by Dr. Mills. We have been consulted for medical management throughout patient's hospitalization. Assessment and Plan of Care: Status post right total knee arthroplasty Management per primary admitting orthopedic surgery team including DVT prophylaxis, pain management, weightbearing, wound/dressing care, and PT/OT. Hypertension Monitor vital signs and continue daily medication regimen with losartan 25 mg daily and metoprolol 25 mg daily. GERD PPI with Protonix 40 mg daily. Thank you for allowing us to participate in the care of this pleasant patient. Do not hesitate to contact us with questions. Someone can be reached from the [facility] hospitalist group all hours of the day at [phone] or via Angel[employer] serve. This document was prepared using zintin dictation software. Please allow for errors in pit recorder while rare they do occur. Objective - Vital Signs Vital signs: Vital Signs Temp 98.6 F 12/22/22 07:46 Pulse 92 12/22/22 12:42 Resp 18 12/22/22 07:46 BP 127/72 12/22/22 12:42 Pulse Ox 95 12/22/22 07:46 FiO2 Intake & Output 12/21/22 12/22/22 12/22/22 18:59 06:59 18:59 Intake Total 1401 Output Total 40 Balance 1361 Weight 92.9 kg Intake: IV 1401 Output: Estimated Blood Loss 40 Other: Voiding Method Toilet # Voids 1 2 - Labs CBC & Chem 7: 12/22/22 06:44 Labs: Abnormal Lab Results - Last 24 Hours (Table) 12/22/22 Range/Units 06:44 RBC 3.74 L (4.10-5.20) X 10*6/uL Hgb 11.7 L (12.0-15.0) d/dL Hct 34.9 L (37.2-46.3) % Eosinophils # 0.02 L (0.04-0.35) X 10*3/uL
[2022-12-22] MEDS: SODIUM CHLORIDE 0.9% 1,000 ML IV SCH (13:56)
[2022-12-22] MEDS: SENNOSIDES-DOCUSATE SODIUM 1 EACH TAB PO SCH (21:40)
[2022-12-23] MEDS: HYDROcodone/APAP 7.5-325MG 1 EACH TAB PO PRN ×3 (01:10→12:56)
[2022-12-23] MEDS: ONDANSETRON 4 MG/2 ML VIAL IVP PRN (07:39)
[2022-12-23 08:01] VITALS: BP 107/71; PULSE 78; RESP 15; TEMP 98.4
[2022-12-23] MEDS: SODIUM CHLORIDE 0.9% 1,000 ML IV SCH (08:17)
[2022-12-23] MEDS: ASPIRIN 325 MG TAB PO SCH (09:12)
[2022-12-23] MEDS: PANTOPRAZOLE 40 MG/10 ML VIAL IVP SCH (09:12)
[2022-12-23] MEDS ORDERED: METOCLOPRAMIDE 5 MG/ML 2 ML VIAL IVP PRN (09:18)
--- NOTE | 2022-12-23 12:07 | P.DS ---
Providers Date of admission: 12/22/22 12:31 Expected date of discharge: 12/23/22 Attending physician: Andrei Mills Consults: 12/21/22 08:04 Consult Physician Routine Consulting Provider: Andrei Benoit Consult Reason/Comments: medical management Do you want consulting provider notified?: Yes Primary care physician: Andrei Benoit - Discharge Diagnosis(es) (1) Osteoarthritis of right knee Current Visit: Yes Status: Acute (2) Status post total right knee replacement Current Visit: Yes Status: Acute Hospital Course: This is a 52-year-old female with known history of degenerative arthritis of the right knee. The patient presented for evaluation as an outpatient. After discussion and consideration patient elects to proceed with total knee arthroplasty. The patient is seen preoperatively by Dr. Mills and medically cleared for surgery by their primary care physician. Patient is admitted to [facility] on 12/21/2022 for total knee arthroplasty. The procedure is performed without complication or sequelae. The patient is doing well postoperatively. Labs and vital signs are stable on day of discharge. On day of discharge patient's knee incision is healing well. There is minimal erythema. There is no drainage noted at this time. There is minimal soft tissue swelling to the knee. Patient has full foot and ankle motion without difficulty or pain. Calf is soft and nontender to palpation. Neurovascular status to the right lower extremity is intact. Patient is discharged home in good condition. Please see med rec for accurate list of home medications. Plan - Discharge Summary Discharge Rx Participant: Yes New Discharge Prescriptions: New Aspirin 325 mg PO BID #60 tab HYDROcodone/APAP 7.5-325MG [[place] 7.5-325] 1 - 2 tab PO Q6H PRN #32 tab PRN Reason: Pain Sennosides [Senokot] 2 tab PO DAILY PRN #60 tablet PRN Reason: Constipation Pantoprazole Sodium [Protonix] 20 mg PO DAILY #30 tab Metoclopramide [Reglan] 10 mg PO QID PRN #28 tab PRN Reason: Nausea No Action Metoprolol Tartrate [Lopressor] 25 mg PO 1200 Losartan [Cozaar] 25 mg PO 1200 Aspirin [Adult Low Dose Aspirin EC] 81 mg PO QAM Cholecalciferol (Vitamin D3) [Vitamin D3 (3000 Iu)] 75 mg PO 1200 Discharge Medication List Aspirin [Adult Low Dose Aspirin EC] 81 mg PO QAM 01/16/20 [History] Losartan [Cozaar] 25 mg PO 1200 01/16/20 [History] Metoprolol Tartrate [Lopressor] 25 mg PO 1200 01/16/20 [History] Cholecalciferol (Vitamin D3) [Vitamin D3 (3000 Iu)] 75 mg PO 1200 12/15/22 [History] Aspirin 325 mg PO BID #60 tab 12/21/22 [Rx] HYDROcodone/APAP 7.5-325MG [[place] 7.5-325] 1 - 2 tab PO Q6H PRN #32 tab 12/21/22 [Rx] Sennosides [Senokot] 2 tab PO DAILY PRN #60 tablet 12/21/22 [Rx] Metoclopramide [Reglan] 10 mg PO QID PRN #28 tab 12/23/22 [Rx] Pantoprazole Sodium [Protonix] 20 mg PO DAILY #30 tab 12/23/22 [Rx] Follow up Appointment(s)/Referral(s): [facility],Equipment [NON-STAFF] - As Needed (*Please call [facility] to arrange delivery of the Continuous Passive Motion (CPM) machine. ) [facility] [NON-STAFF] - 1-2 Days ([facility] will call you to schedule your in home physical therapy visits. ) Andrei Mills DO [Doctor of Osteopathic Medicine] - 2 Weeks Patient Instructions/Handouts: Knee Replacement (DC) Activity/Diet/Wound Care/Special Instructions: Weightbearing as tolerated with a walker. CPM 5-6h daily as tolerated. Leave dressing intact. Dressing may be removed by home care nurse or by patient in 7 days. Then change dressing twice daily until follow up. May shower with initial dressing intact and after removal. If dressing become saturated, please remove. Recommend use of compression stockings daily until follow up to help prevent swelling and blood clots. May remove at night before sleeping. Please take aspirin 325mg twice daily for 30 days to prevent blood clots. Please follow up with [facility] and call with any questions or concerns, . Discharge Disposition: HOME WITH HOME HEALTH SERVICES
[2022-12-23] MEDS: METOPROLOL TARTRATE 25 MG TAB PO SCH (12:52)
[2022-12-23] MEDS: LOSARTAN 25 MG TAB PO SCH (12:52)
--- NOTE | 2022-12-23 13:14 | P.PN ---
Subjective Progress Note Date: 12/23/22 Patient is a very pleasant 52-year-old female with a past medical history of hypertension, hypothyroidism, GERD, and osteoporosis. She is currently admitted under orthopedic surgery team status post elective right total knee arthroplasty. Surgery was completed by Dr. Mills. We have been consulted fo r medical management throughout patient's hospitalization. 12/23 Patient reports some nausea and lightheadedness after getting Dilaudid this morning. Symptoms seem to be wearing off. Ongoing knee pain. Gen: awake, alert HEENT: normocephalic, atraumatic, good hearing acuity, moist mucous membranes Resp: good air exchange, breathing comfortably with no accessory muscle use, CTA BL CVS: good distal perfusion x 4, Normal S1 S2 : blackwell catheter not present MSK: no pitting edema, no clubbing Neuro: non-focal, moving all extremities Psych: cooperative, euthymic mood Status post right total knee arthroplasty Management per primary admitting orthopedic surgery team including DVT prophylaxis, pain management, weightbearing, wound/dressing care, and PT/OT. Hypertension Monitor vital signs and continue daily medication regimen with losartan 25 mg daily and metoprolol 25 mg daily. GERD PPI with Protonix 40 mg daily. Thank you for allowing us to participate in the care of this pleasant patient. Do not hesitate to contact us with questions. Someone can be reached from the [facility] hospitalist group all hours of the day at [phone] or via perfect serve. Patient is medically stable for discharge. Objective - Vital Signs Vital signs: Vital Signs Temp 98.4 F 12/23/22 07:22 Pulse 78 12/23/22 07:22 Resp 15 12/23/22 07:22 BP 107/71 12/23/22 07:22 Pulse Ox 98 12/23/22 07:22 FiO2 Intake & Output 12/22/22 12/23/22 12/23/22 18:59 06:59 18:59 Other: Voiding Method Toilet Toilet # Voids 4 2 - Labs CBC & Chem 7: 12/22/22 06:44
== END 2022-12-23 14:23 | disposition home health service (06) ==
LOC: OR 08:01 → 4SSUR 11:49 → OR 12-22 12:31
PROVIDERS: ADMIT Orthopaedic Surgery; ATTEND Orthopaedic Surgery
DX: M17.11 Unilateral primary osteoarthritis, right knee (principal); I10 Essential (primary) hypertension; E78.2 Mixed hyperlipidemia; K21.9 Gastro-esophageal reflux disease without esophagitis; E55.9 Vitamin D deficiency, unspecified; M21.161 Varus deformity, not elsewhere classified, right knee; M81.0 Age-related osteoporosis without current pathological fracture; E03.9 Hypothyroidism, unspecified; R35.0 Frequency of micturition; E21.3 Hyperparathyroidism, unspecified; R42 Dizziness and giddiness; R11.0 Nausea; T40.2X5A Adverse effect of other opioids, initial encounter; Z79.82 Long term (current) use of aspirin; Z79.899 Other long term (current) drug therapy; Z87.442 Personal history of urinary calculi; Z87.19 Personal history of other diseases of the digestive system; Z86.010 Personal history of colon polyps; Z87.39 Personal history of other diseases of the musculoskeletal system and connective tissue; Z98.891 History of uterine scar from previous surgery; Z98.890 Other specified postprocedural states; Z83.3 Family history of diabetes mellitus; Z82.49 Family history of ischemic heart disease and other diseases of the circulatory system; Z80.9 Family history of malignant neoplasm, unspecified
CPT/HCPCS: 97116; 97161; 64999; 64448; 85025; 73560; 27447; G0378 ×2; C1713; C1776; C1751; J2250; J1100; J2765; J0690 ×2; J2405 ×3; J3010; J1170 ×2; J2795; J2704; C9113 ×2; J2371

== ENCOUNTER → 2023-06-21 | Outpatient (CLI) | payer BC ==
--- NOTE | 2023-06-21 16:36 | XR ---
EXAMINATION TYPE: XR abdomen 1V DATE OF EXAM: 06/21/2023 COMPARISON: None INDICATION: Gross hematuria TECHNIQUE: Single view abdomen frontal projection FINDINGS: There is a normal bowel gas pattern. Psoas margins are normal. No organomegaly is present. Multiple scattered calcifications overlie the right kidney. There is a 0.8 cm calcification which may be in the right renal pelvis. Additional smaller calcifications are in the mid to inferior pole righ t kidney. IMPRESSION: 1. Right Renal calcifications. Right renal pelvic stone may be present.
== END | disposition home or self-care (01) ==
LOC: RADXRYALE 16:13
PROVIDERS: ATTEND Physician Assistant
DX: N28.89 Other specified disorders of kidney and ureter (principal); R31.0 Gross hematuria
CPT/HCPCS: 74018

== ENCOUNTER → 2023-08-15 | Outpatient (CLI) | payer BC ==
--- NOTE | 2023-08-15 18:29 | CT ---
EXAMINATION TYPE: CT abdomen pelvis wo con DATE OF EXAM: 08/15/2023 COMPARISON: 05/09/2015 INDICATION: Bilateral flank pain with hematuria x 2 months DLP: 827.1 mGycm, Automated exposure control for dose reduction was used. CONTRAST: mL of . Study performed without Oral Contrast TECHNIQUE: Axial images were obtained from above the diaphragm to the pubic rami in the axial plane a t 5 mm thick sections. Reconstructed images are reviewed on the computer in the coronal plane. FINDINGS: Limited CT sections are obtained the lung bases. The lung bases are clear. CT ABDOMEN: There may be some varicosities adjacent to and inferior to the spleen. Liver: Normal Spleen: Normal Pancreas: Normal Adrenal glands: The adrenal glands are normal. Gallbladder: Normal Kidneys: No masses are evident. A left renal cortical cyst is less well visualized on the current exa mination. There is some mild prominence of the superior pole renal collecting system. Overt hydronep hrosis is not identified. There are multiple nonobstructing renal stones within the right kidney. The re is mild right hydroureter. This extends to the proximal right hemipelvis. There is a partially obs tructing ureteral stone measuring 0.8 cm, image 95 series 3 Aorta: Normal Inferior vena cava: Normal. CT PELVIS: Loops of bowel within the abdomen and pelvis are normal. Multiple diverticuli are within the sigmoid colon. No acute diverticulitis or adjacent inflammatory changes evident. There are loops of bowel which are incompletely distended or lack oral contrast limiting their evaluation. Appendix: Normal as visualized. Urinary bladder: Normal. Genitourinary structures: Uterus is somewhat bulky. Adnexa are unremarkable. Osseous structures: No suspicious lytic or sclerotic lesions. IMPRESSION: 1. Partially obstructing 0.8 cm distal right hemipelvis ureteral stone with mild right hydroureter a nd minimal prominence of the superior right renal collecting system. 2. There are multiple nonobstructing renal stones within the right kidney. 3. Diverticulosis without acute diverticulitis of the sigmoid colon.
== END | disposition home or self-care (01) ==
LOC: RADCTMAIN 17:10
PROVIDERS: ATTEND Family Medicine
DX: N20.2 Calculus of kidney with calculus of ureter (principal); K57.30 Diverticulosis of large intestine without perforation or abscess without bleeding
CPT/HCPCS: 74176

== ENCOUNTER 2023-08-23 14:16 | Day surgery (SDC) | payer BC ==
--- NOTE | 2023-08-23 08:25 | P.HPIHPCON ---
History of Present Illness H&P Date: 08/23/23 Chief Complaint: Right ureteral stone This is a 53-year-old female with total stone burden of 1.7 cm in the right mid ureter secondary to multiple ureteral stones, and multiple right-sided renal stone. Discussed with her given the significant stone burden chance of spontane ous passage is very low. Option of right-sided ureteroscopy with holmium laser was discussed, aware of the risk which includes but not limited to bleeding, infection, injury to the ureter. Alternative of ESWL was also discussed .discussed also given the significant stone burden potential this may need to be a staged procedure Consent for Procedure: I have explained the operation/procedure to the patient, including the risks, benefits, side effects, alternative therapies (including not receiving the proposed treatment or service), the likelihood of the patient achieving his/her goals, and potential recuperation problems for the procedure/sedation/analgesia, as well as any blood products, if indicated. I also explained to the patient the risks, benefits and side effects of the alternatives, as well as the risks related to not receiving the proposed procedure, care, treatment, or services. Past Medical History Past Medical History: Hypertension, Renal Disease Additional Past Medical History / Comment(s): Nephrolithiasis/passed stone on own, BISCUSPID AORTIC VALVE, OSTEOPOROSIS OF THE SPINE History of Any Multi-Drug Resistant Organisms: None Reported Past Surgical History: Section, Joint Replacement Additional Past Surgical History / Comment(s): colonscopy, total R hip knee. Past Anesthesia/Blood Transfusion Reactions: Motion Sickness, Postoperative Nausea & Vomiting (PONV) Smoking Status: Never smoker - Past Family History Father Family Medical History: Cancer Medications and Allergies Home Medications Medication Instructions Recorded Confirmed Type Losartan [Cozaar] 25 mg PO 1200 01/16/20 08/19/23 History Metoprolol Tartrate [Lopressor] 25 mg PO 1200 01/16/20 08/19/23 History Cholecalciferol (Vitamin D3) 75 mg PO 1200 12/15/22 08/19/23 History [Vitamin D3 (3000 Iu)] Aspirin [Adult Low Dose Aspirin EC] 81 mg PO Q48H 08/19/23 08/19/23 History Tamsulosin HCl [Flomax] 0.4 mg PO QAM 08/19/23 08/19/23 History Allergies Allergy/AdvReac Type Severity Reaction Status Date / Time No Known Allergies Allergy Verified 08/19/23 14:05 Surgical - Exam - General no distress, moderate pain - Eyes normal ocular movement, no pale - ENT normal nares, normal mucosa - Respiratory normal expansion, normal respiratory effort - Abdomen Abdomen: soft, non tender - Psychiatric oriented to time, oriented to person, oriented to place Assessment and Plan Assessment: OR for right-sided ureteroscopy, manage lithotripsy, stone basketing and stent insertion
[~2023-08-23 14:16] MED LIST changes: -ACETAMINOPHEN TAB 500 MG TAB PO PRN; -GABAPENTIN 300 MG CAP PO PRN; +HYDROmorphone 0.5 MG/0.5 ML SYRINGE IVP PRN; +LIDOCAINE 1% (10MG/ML) FOR IV START INTRADERMA PRN; -MELOXICAM 7.5 MG TAB PO PRN; -TRANEXAMIC 1,000 MG/100ML-NACL 1,000 MG in SALINE 1 100ML.BAG IVPB PRN
[2023-08-23] MEDS: ONDANSETRON 4 MG/2 ML VIAL IVP ONE (15:04)
[2023-08-23] MEDS: LACTATED RINGERS 1,000 ML IV SCH (15:04)
--- NOTE | 2023-08-23 15:09 | XR ---
EXAMINATION TYPE: XR KUB DATE OF EXAM: 08/23/2023 Comparison: None Clinical History: 53-year-old female cysto/litho/basketing and stenting Findings: 5 mm calcification right mid abdomen. 8 mm calcification right sided pelvic inlet. Mild stool burden. No dilated small bowel. Impression: 5 mm nonobstructive right renal calculus. 8 mm calcification upper right pelvis likely in the mid to distal right ureter, similar compared to 08/15/2023.
[2023-08-23] MEDS: SCOPOLAMINE 1 MG/72 HR PATCH TRANSDERM ONE (15:12)
[2023-08-23] MEDS: DEXAMETHASONE SOD PHOSPHATE 4 MG/ML 1 ML VIAL IVP ONE (15:12)
[2023-08-23 15:40] VITALS: TEMP 97
[2023-08-23] MEDS ORDERED: fentaNYL (PF) 50 MCG/ML 2 ML AMP ONE (15:45)
[2023-08-23] MEDS ORDERED: MIDAZOLAM 2 MG/2 ML VIAL ONE (15:45)
[2023-08-23] MEDS ORDERED: PROPOFOL 10 MG/ML 20 ML VIAL IV ONE (15:45)
[2023-08-23] MEDS ORDERED: LIDOCAINE 1% INJ 10MG/ML (20 ML MDV) ONE (15:45)
[2023-08-23] MEDS ORDERED: PHENYLEPHRINE 10 MG/ML VIAL ONE (15:45)
[2023-08-23] MEDS ORDERED: SUCCINYLCHOLINE CHLORIDE 200 MG/10 ML VIAL IV ONE (15:45)
[2023-08-23] MEDS ORDERED: ePHEDrine 50 MG/ML 1 ML VIAL ONE (15:45)
--- NOTE | 2023-08-23 16:42 | P.OP ---
Date of Procedure: 08/23/23 Preoperative Diagnosis: Right ureteral stone Postoperative Diagnosis: Same Procedure(s) Performed: Cystoscopy, right ureteroscopy, holmium laser lithotripsy, stone basketing and stent insertion Implants: 6 Mosotho by 26 cm stent in the right ureter Anesthesia: GILMA Surgeon: Adama Cochran Estimated Blood Loss (ml): 5 Pathology: other (ureteral stone) Condition: stable Disposition: PACU Indications for Procedure: This is a 53-year-old female with total stone burden of 1.7 cm in the right mid ureter secondary to multiple ureteral stones, and multiple right-sided renal stone. Discussed with her given the significant stone burden chance of spontaneous passage is very low. Option of right-sided ureteroscopy with holmium laser was discussed, aware of the risk which includes but not limited to bleeding, infection, injury to the ureter. Alternative of ESWL was also discussed .discussed also given the significant stone burden potential this may need to be a staged procedure Operative Findings: Multiple right-sided mid ureteral to distal stones, multiple stones within the kidney Description of Procedure: Patient brought to the operating room, general anesthesia was induced. She was prepped and draped in sterile fashion placed in dorsolithotomy position. Cystoscopy through the 21 Mosotho sheath was inserted per urethra, cystoscopy was performed showed no abnormality within the bladder. Attention was then carried to the right ureteral orifice, semirigid ureteroscope was inserted per urethra and advanced up the right ureteral orifice, a stone was encountered at the distal ureter, using the holmium laser the stone was fragmented, of note there were multiple [id number] stones that were fragmented. Sizable stone fragments were removed using the stone basket. This time the ureteroscope was advanced past the area of the stone and into the proximal ureter which showed no additional stones, pullback ureteroscopy was performed showed no evidence of any sizable fragments or injury to the ureter. As ureteroscope was withdrawn a sensor wire was advanced through. Next under fluoroscopy and 1113 Mosotho access sheath was passed over the wire into the proximal ureter. The flexible ureteroscope was inserted through the access sheath, renoscopy was performed which showed multiple stones throughout the kidney, using the holmium laser the stones were dusted, any sizable fragments were removed using the stone basket. Repeat renoscopy showed no sizable stones within the kidney or injury to the kidney on fluoroscopy there was no radiopaque densities. Of note there were multiple parenchymal calcifications seen throughout the kidney. pullback ureteroscopy was performed showed no injury to the ureter or any ureteral stones, as ureteroscope was withdrawn a sensor wire was advanced through. Next ureteral stent was passed over the wire, the proximal curl was visualized on fluoroscopy and the distal curl was visualized using the cystoscope. The bladder was emptied at the end of the case. Patient tolerated procedure was taken to recovery in stable condition
--- NOTE | 2023-08-23 17:08 | FL ---
EXAMINATION TYPE: FL guidance operating room DATE OF EXAM: 08/23/2023 FLUOROSCOPY Right cysto, 10.5 sec fl time, 1.86 mGy dap. 3 images submitted.
[2023-08-23 18:14] VITALS: BP 126/69; PULSE 82; RESP 18
== END 2023-08-23 18:15 | disposition home or self-care (01) ==
LOC: OR 14:16
PROVIDERS: ATTEND Urology
DX: N20.2 Calculus of kidney with calculus of ureter (principal); I12.9 Hypertensive chronic kidney disease with stage 1 through stage 4 chronic kidney disease, or unspecified chronic kidney disease; N18.9 Chronic kidney disease, unspecified; Z79.82 Long term (current) use of aspirin; Z79.899 Other long term (current) drug therapy
CPT/HCPCS: 82365; 74018; 52356; C2625; C1769; J2250; J0330; J1100; J0690; J2405; J2001; J3010; J2704; J2371

== ENCOUNTER → 2023-09-16 | Outpatient (CLI) | payer BC ==
--- NOTE | 2023-09-20 15:41 | BD ---
EXAMINATION TYPE: Axial Bone Density DATE OF EXAM: 09/16/2023 CLINICAL HISTORY: 53 years old Female. ICD-10 CODE: M85.80 Disorder of bone Height: 67" Weight: 206lbs FRAX RISK QUESTIONS: Alcohol (3 or more units per day): No Family History (Parent hip fracture): No Glucocorticoids (More than 3mos): No (Ex: prednisone, prednisolone, methylprednisolone, dexamethasone, and hydrocortisone). History of Fracture in Adulthood: No Secondary Osteoporosis: 1. Type 1 Diabetes: No 2. Hyperthyroidism: No 3. Menopause before 45: Unknown 4. Malnutrition: No 5. Chronic liver disease: No Rheumatoid Arthritis: No Current Tobacco Use: No RISK FACTORS HISTORY OF: Hip Fracture (Right/Left): No Spine Fracture: No History of Wrist Fracture: No Surgery to Spine/Hip(right/left)/Wrist (right/left): No MEDICATIONS: Thyroid Medications: No Osteoporosis Medications: No EXAM MEASUREMENTS: Bone mineral densitometry was performed using the [employer] System. Bone mineral density as measured about the Lumbar spine is: ----- L1-L4(G/cm2): 0.908 T Score Values are as follows: ----- L1: -2.2 ----- L2: -2.4 ----- L3: -1.9 ----- L4: -2.6 ----- L1-L4: -2.3 Z Score Values are as follows: ----- L1: -2.4 ----- L2: -2.6 ----- L3: -2.2 ----- L4: -2.8 ----- L1-L4: -2.5 Bone mineral density has: increased 5.8% since study of: 05/12/2021 Bone mineral density about the R hip (g/cm2): 0.861 Bone mineral density about the L hip (g/cm2): 0.991 T Score values are as follows: -----R Neck: -1.7 -----L Neck: -1.3 -----R Total: -1.2 -----L Total: -0.1 Z Score values are as follows: -----R Neck: -1.3 -----L Neck: -1.0 -----R Total: -1.2 -----L Total: -0.2 Bone mineral density has: increased 2.2% since study of: 05/12/2021 FRAX%s: The graph provided illustrates a 6.4% chance for a major osteoporotic fx and a 0.6% chance fo r the hips probability for fx in 10 years time. IMPRESSION: Osteopenia (T Score between -2.5 and -1). There is slightly increased risk of fracture and the patient may be considered for treatment. Re-Screen 2-5 years. NOTE: T-SCORE=SD OF THE YOUNG ADULT MEAN.
== END | disposition home or self-care (01) ==
LOC: RADBDWWP 14:58
PROVIDERS: ATTEND Family Medicine
DX: M85.88 Other specified disorders of bone density and structure, other site (principal); Z78.0 Asymptomatic menopausal state
CPT/HCPCS: 77080

== ENCOUNTER → 2023-10-10 | Outpatient (CLI) | payer BC ==
--- NOTE | 2023-10-10 19:51 | NM ---
EXAMINATION TYPE: NM parathyroid DATE OF EXAM: 10/10/2023 COMPARISON: NONE CLINICAL INDICATION: Female, 53 years old with history of E212 OTHER HYPERPARATHYROIDISM; TECHNIQUE: Following administration of 24.7 mCi Tc99m Sestamibi. Anterior projection images of the neck and ches t were obtained 5 minutes and 3 hours post injection FINDINGS: Thyroid tracer washout: Delayed images demonstrate near-complete tracer washout from the thyroid. Parathyroid uptake: None. The two-hour delayed images do not demonstrate any focal abnormal persisten t uptake in the region of the parathyroid glands to suggest parathyroid adenoma. Normal uptake: There is physiological tracer uptake in the myocardium, liver, salivary glands, and th yroid gland. IMPRESSION: Normal parathyroid imaging study. No evidence for abnormal uptake to suggest parathyroid adenoma
== END | disposition home or self-care (01) ==
LOC: RADNMMAIN 10:50
PROVIDERS: ATTEND Family Medicine
DX: E21.2 Other hyperparathyroidism (principal)
CPT/HCPCS: 78070; A9500

== ENCOUNTER → 2024-03-09 | Outpatient (CLI) | payer BC ==
--- NOTE | 2024-03-10 23:35 | MM ---
Reason for Exam: Screening (asymptomatic). Last mammogram was performed 1 year(s) and 5 month(s) ago. Patient History: Menarche at age 11. First Full-Term at age 27. Postmenopausal. 2016, Benign Cyst Aspiration on the left side. 09/03/2016, Benign Core Biopsy on the left side. Maternal grandmother had breast cancer. Risk Values: Diana 5 year model risk: 1.5%. NCI Lifetime model risk: 10.8%. Prior Study Comparison: 02/13/2020 Bilateral Screening Mammogram, [facility]. 06/19/2021 Bilateral Screening Mammogram, [facility]. 09/27/2022 Bilateral MG 3D screening mammo w/cad, [facility]. Tissue Density: The breasts are heterogeneously dense, which may obscure small masses. Findings: Analyzed By CAD. The pattern is symmetrical. Pattern appears stable. Core markers within the left breast. Vascular calcification is present bilaterally. No suspicious groups of microcalcifications, spiculated or lobular masses, architectural distortion or other secondary signs of malignancy are mammographically apparent. Overall Assessment: Benign, BI-RAD 2 Management: Screening Mammogram of both breasts in 1 year. A negative mammogram report should not preclude additional follow up of suspicious palpable abnormalities. Patient should continue monthly self breast exam. A clinical breast exam by your physician is recommended on an annual basis and results should be correlated with mammographic findings. Note on Diana scores and lifetime risk: 1. A Diana score greater than 3% is considered moderate risk. If this is the case, consider specialist referral to assess eligibility for a risk reducing agent. 2. If overall lifetime risk for the development of breast cancer is 20% or higher, the patient may qualify for future screening with alternating mammogram and breast MRI. [facility], , 03/10/2024 11:31 PM. Electronically signed and approved by: Leonardo Allen D.O. Radiologis
== END | disposition home or self-care (01) ==
LOC: RADMAMWWP 13:36
PROVIDERS: ATTEND Family Medicine
DX: Z12.31 Encounter for screening mammogram for malignant neoplasm of breast (principal); Z78.0 Asymptomatic menopausal state; Z80.3 Family history of malignant neoplasm of breast; R92.333 Mammographic heterogeneous density, bilateral breasts; Z98.82 Breast implant status
CPT/HCPCS: 77063; 77067

== ENCOUNTER → 2024-08-03 | Outpatient (CLI) | payer BC ==
--- NOTE | 2024-08-04 09:36 | XR ---
EXAMINATION TYPE: XR abdomen 2V DATE OF EXAM: 08/03/2024 4:29 PM COMPARISON: 08/15/2023. CLINICAL INDICATION: Female, 54 years old with history of N200,R319 CALC OF KIDNEY,HEMATURIA; [facility] TECHNIQUE: Two views of the abdomen were obtained. FINDINGS: Moderate amount stool throughout the colon. The bowel gas pattern is nonspecific without d ilated loops of small or large bowel. . Fecal material and gas are demonstrated throughout the colon and rectum. There is no evidence for organomegaly or pneumoperitoneum. No acute osseous process. Right renal calculi measuring up to 15 x 12 mm. Calculus also near the inferior endplate of L4 on the right measuring up to 10 mm. IMPRESSION: 1. Right renal cortical 15 x 12 mm calculus 2. Possible calculi in the right ureter near the L4 vertebral body. Findings similar to prior CT 07/27. Consider follow-up CT urogram for further evaluation of the collecting systems. 3. Nonspecific bowel gas pattern without radiographic evidence for acute process. [facility], , 08/04/2024 9:34 AM
== END | disposition home or self-care (01) ==
LOC: RADXRYALE 16:13
PROVIDERS: ATTEND Physician Assistant Medical
DX: N20.0 Calculus of kidney (principal)
CPT/HCPCS: 74019

== ENCOUNTER → 2024-08-14 | Outpatient (CLI) | payer BC ==
--- NOTE | 2024-08-15 00:28 | CT ---
EXAMINATION TYPE: CT urogram wo/w con CT DLP: 3577.6 mGycm, Automated exposure control for dose reduction was used. DATE OF EXAM: 08/14/2024 5:09 PM COMPARISON: CT abdomen pelvis 08/15/2023, abdominal radiograph 08/03/2024, CT urogram 05/09/2015 CLINICAL INDICATION:Female, 54 years old with history of N20.0 CALCULUS OF KIDNEY N20.1 CALCULUS OF U [id number] CALCU; [facility], Abdominal pain, hx of kidney stones. TECHNIQUE: Urogram of the abdomen and pelvis was performed before and after the administration of 100 cc of IV c ontrast Isovue 300 contrast. Delayed imaging was performed. Coronal and sagittal reformats were perfo rmed. One or more CT dose reduction strategies were utilized during this examination. 2D and 3D recon structions are performed to assist visualization of the urinary tract on a separate workstation. FINDINGS: GENITOURINARY: RIGHT KIDNEY AND URETER: No renal calculi. Severe right hydroureteronephrosis with approximately 5 ca lculi identified within the mid to proximal right ureter. The more distal obstructing calculus measur es 1 x 1 cm (series 4, image 80). There are approximate 3 adjacent calculi just proximal to this with in the ureter measuring 6, 4, an 8 mm respectively. Additional 1 x 1.4 cm calculus within the proxima l right ureter at the ureteropelvic junction (series 4, image 60). Several nonenhancing simple appear ing cortical cysts. No suspicious enhancing lesion. Delayed contrast excretion within the left consis tent with no contrast demonstrated within the right ureter throughout the course of the exam. This ap pearance limits evaluation. LEFT KIDNEY AND URETER: No renal or ureteral calculi. No hydronephrosis or hydroureter. Several nonen hancing simple appearing cortical cysts with largest measuring up to 2.1 cm. No suspicious enhancing renal lesion. No urothelial lesions: no filling defect, dilation, stricture or wall thickening. URINARY BLADDER: Moderately well distended. Normal, no calculi, mass or other lesions. REPRODUCTIVE: Unremarkable. ABDOMEN LIVER: Diffusely hypoattenuating, consistent with hepatic steatosis. No focal lesion. Enlarged measur ing 20.0 cm in CC dimension. GALLBLADDER AND BILE DUCTS: Unremarkable PANCREAS: Unremarkable. SPLEEN: Enlarged measuring 16.5 cm in CC dimension.. ADRENAL GLANDS: Unremarkable. STOMACH AND BOWEL: Colonic diverticulosis without evidence for acute diverticulitis. The appendix is within normal limits. No evidence of bowel obstruction. PERITONEUM/RETROPERITONEUM: No evidence of pneumoperitoneum, free fluid, or adenopathy. Multiple col lateral vessels identified within the left paracolic gutter region again. VASCULATURE: No aortic aneurysm. MUSCULOSKELETAL: No acute osseous abnormalities. SOFT TISSUE/ABDOMINAL WALL: Small fat filled umbilical hernia. LOWER CHEST: No significant findings. IMPRESSION: 1. Severe right hydroureteronephrosis with approximately 5 calculi within the mid to proximal right u reter. The obstructing calculus within the mid right ureter measures up to 1 cm. Urology consultation is recommended. 2. No renal calculi bilaterally. Bilateral nonenhancing simple appearing renal cysts. No suspicious e nhancing renal lesion. No follow-up recommended for the cysts. 3. Urinary bladder appears unremarkable with no abnormality identified within the left ureter. Poor e valuation of the right ureter due to lack of contrast excretion into the collecting system throughout the course of the exam. 4. Colonic diverticulosis without evidence for acute diverticulitis. 5. Mild hepatosplenomegaly with hepatic steatosis. [facility], , 08/15/2024 12:26 AM
== END | disposition home or self-care (01) ==
LOC: RADCTMAIN 14:48
PROVIDERS: ATTEND Family Medicine
DX: N13.2 Hydronephrosis with renal and ureteral calculous obstruction (principal); K57.30 Diverticulosis of large intestine without perforation or abscess without bleeding; R16.2 Hepatomegaly with splenomegaly, not elsewhere classified; K76.0 Fatty (change of) liver, not elsewhere classified; N28.1 Cyst of kidney, acquired; Z87.442 Personal history of urinary calculi; Z87.59 Personal history of other complications of pregnancy, childbirth and the puerperium
CPT/HCPCS: 74178; 74400; Q9967